=== PATIENT | male | born 1985 | race Caucasian/White ===

== ENCOUNTER 2017-01-20 23:32 | Emergency (ER) | payer OTHER ==
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
[2017-01-20 23:59] VITALS: TEMP 98.1; BMI 38.7
[2017-01-21] MEDS ORDERED: AMOX TR/POT CLAV 875MG/125MG TABLETS (FP) PO ONE (00:06)
[2017-01-21] MEDS ORDERED: TETANUS AND DIPHTHERIA TOXOID 0.5 ML DISP.SYRIN IM ONE (00:06)
[2017-01-21] MEDS ORDERED: AMOX TR/POT CLAV 875MG/125MG TABLETS (FP) ONE (00:29)
[2017-01-21] MEDS ORDERED: IBUPROFEN 400 MG TABLET (FP) PO ONE ×2 (01:47→01:52)
[2017-01-21 02:00] VITALS: BP 149/88; PULSE 96
== END 2017-01-21 02:02 | disposition home or self-care (01) ==
LOC: JER 23:32
PROC: 3E0234Z Introduction of Serum, Toxoid and Vaccine into Muscle, Percutaneous Approach (ICD-10-PCS; principal; 2017-01-20)
DX: S29.8XXA Other specified injuries of thorax, initial encounter (principal); S09.8XXA Other specified injuries of head, initial encounter; Y04.2XXA Assault by strike against or bumped into by another person, initial encounter; Y93.89 Activity, other specified; Y92.512 Supermarket, store or market as the place of occurrence of the external cause; Y99.0 Civilian activity done for income or pay
CPT/HCPCS: 70450-TC; 70486-TC; 71250-TC; 99283-25

== ENCOUNTER 2018-09-21 20:31 | Emergency (ER) | payer OTHER ==
[2018-09-21 20:37] VITALS: BP 172/67; PULSE 69; TEMP 98.2; BMI 37.5
--- NOTE | 2018-09-21 20:39 | PDOC ---
Rapid Medical Evaluation Time Seen by Provider: 09/21/18 20:34 Medical Evaluation: Allergies Allergy/AdvReac Type Severity Reaction Status Date / Time No Known Allergies Allergy Verified 04/25/18 10:59 09/21/18 20:35 I have performed a brief in-person evaluation of this patient. The patient presents with a chief complaint of: SMOOTH x4 days Pertinent physical exam findings: +4 tonsils. Lungs with end expiratory wheezes I have ordered the following: influenza, rapid strep The patient will proceed to the ED for further evaluation. Discharge Disposition - Diagnosis Influenza-like symptoms - Referrals - Patient Instructions - Post Discharge Activity
[2018-09-21] MEDS ORDERED: DEXAMETHASONE LIQUID 0.5 MG/5 ML 240 ML BULK BOTTLE PO ONE (22:01)
--- NOTE | 2018-09-21 22:04 | PDOC ---
History of Present Illness - General Chief Complaint: Sore Throat Stated Complaint: SORE THROAT Time Seen by Provider: 09/21/18 20:34 - History of Present Illness Initial Comments: 09/21/18 22:01 33-year-old male without comorbidities presents for evaluation of sore throat intermittent subjective fever and stuffy nose 5 days Past History - Past Medical History Allergies/Adverse Reactions: Allergies Allergy/AdvReac Type Severity Reaction Status Date / Time No Known Allergies Allergy Verified 09/21/18 20:37 Home Medications: Ambulatory Orders Penicillin V Potassium [Pen Vee K -] 500 mg PO QID #40 tablet 09/21/18 COPD: No - Family Disease History Family Disease History: Diabetes: Mother - Immunization History Immunization Up to Date: Yes - Suicide/Smoking/Psychosocial Hx Smoking History: Never smoked Hx Alcohol Use: No Substance Use Type: None Review of Systems - Review of Systems Constitutional: Yes: Fever HEENTM: Yes: Nose Congestion, Throat Pain *Physical Exam - Vital Signs Last Vital Signs Temp Pulse Resp BP Pulse Ox 98.2 F 69 18 172/67 H 100 09/21/18 20:34 09/21/18 20:34 09/21/18 20:34 09/21/18 20:34 09/21/18 20:34 - Physical Exam Comments: 09/21/18 22:02 HEAD: NC/AT EYES: Conjuntiva clear Ears: Canals and TM's normal NOSE: Clear rhinorrhea THROAT: Moist mucous membrances, oral pharanx injected with exudate, uvula midline NECK: Supple without adenopathy CARDIAC: S1 S2 LUNGS: CTA Full and Equal breath sounds ABDOMEN: Soft NT ND MS: Full ROM in all joints without edema NEUROLOGIC: No gross sensory or motor deficits, NVID SKIN: Normal color and temperature no lesions or rashes Moderate Sedation - Procedure Monitoring Vital Signs: Procedure Monitoring Vital Signs Temperature 98.2 F 09/21/18 20:34 Pulse Rate 69 09/21/18 20:34 Respiratory Rate 18 09/21/18 20:34 Blood Pressure 172/67 H 09/21/18 20:34 O2 Sat by Pulse Oximetry (%) 100 09/21/18 20:34 *DC/Admit/Observation/Transfer Diagnosis at time of Disposition: Strep pharyngitis Diagnosis at time of Disposition: (Ruled Out): Influenza-like symptoms - Discharge Dispostion Disposition: HOME Condition at time of disposition: Stable Decision to Admit order: No - Prescriptions Prescriptions: Penicillin V Potassium [Pen Vee K -] 500 mg PO QID #40 tablet - Referrals Referrals: Kellee Pelayo MD [Staff Physician] - Alice Austin MD [Staff Physician] - Dewayne Santos MD [Staff Physician] - Denisa Cotter MD [Staff Physician] - Rakan Chung MD [Staff Physician] - Christina Metcalf MD [Staff Physician] - - Patient Instructions Printed Discharge Instructions: Strep Throat, DI for Strep Throat Additional Instructions: If you need pain medication you may only take Tylenol at this point. You're given a long-acting steroid in the emergency room. Please take the antibiotics as directed and finish the entire course. Return to the emergency room should symptoms worsen or go unresolved otherwise follow-up with the primary care physician we've recommended for you within the next 1-2 days for further evaluation and treatment options. - Post Discharge Activity
[2018-09-21 22:07] LABS: THROAT:GRP A STREP ANTIGEN Positive
== END 2018-09-21 22:18 | disposition home or self-care (01) ==
LOC: JERFT 20:31
DX: J02.0 Streptococcal pharyngitis (principal); B95.0 Streptococcus, group A, as the cause of diseases classified elsewhere; J11.1 Influenza due to unidentified influenza virus with other respiratory manifestations
CPT/HCPCS: 87804; 87880; 99281-25

== ENCOUNTER 2022-06-05 02:50 | Inpatient (IN) | payer OTHER ==
[2022-06-05] MEDS ORDERED: ACETAMINOPHEN 1000 MG/100 ML BAG IVPB ONE (03:15)
[2022-06-05] MEDS ORDERED: FAMOTIDINE 20 MG/50 ML IVPB 20 MG/50 ML MG IVPB ONE ×2 (03:15→03:20)
[2022-06-05] MEDS ORDERED: MAG HYDROX/AL HYDROX/SIMETH -MYLANTA- ORAL SUSPENSION PO ONE (03:15)
[2022-06-05] MEDS ORDERED: ACETAMINOPHEN INJECTION 100 ML IVPB ONE (03:20)
[2022-06-05] MEDS ORDERED: MAG HYDROX/AL HYDROX/SIMETH 30 ML UNIT-DOSE CUP ONE (03:20)
[2022-06-05 03:22] LABS: BASO % 0.7 % (0-2.0); EOS % 1.7 % (0-4.5); HEMOGLOBIN 12.7 GM/dL (11.7-16.9); LYMPH % 29.1 % (8-40); MCH 27.5 pg (25.7-33.7); MCHC 34.3 g/dl (32.0-35.9); MEAN CELL VOLUME 80.2 fl (80-96); MEAN PLT VOLUME 7.9 fl (7.5-11.1); MONO % 5.4 % (3.8-10.2); NEUT % 63.1 % (42.8-82.8); PLATELET COUNT 137 10^3/uL (134-434); RBC 4.61 M/mm3 (4.00-5.60); WHITE BLOOD COUNT 8.5 K/mm3 (4.0-10.0)
[2022-06-05 03:43] LABS: CHLORIDE 106 mmol/L (98-107); SODIUM 142 mmol/L (136-145)
[2022-06-05 03:45] LABS: BLOOD UREA NITROGEN 15.1 mg/dL (7-18); CALCIUM 8.2 mg/dL (8.5-10.1)
[2022-06-05 03:46] LABS: ALBUMIN 3.8 g/dl (3.4-5.0); ANION GAP 7 MMOL/L (8-16); CO2 29 mmol/L (21-32); GLUCOSE,RANDOM 161 mg/dL (74-106); LIPASE 69 U/L (73-393)
[2022-06-05 03:48] LABS: CREATININE 1.2 mg/dL (0.55-1.3)
[2022-06-05 03:50] LABS: BILIRUBIN,TOTAL 0.9 mg/dL (0.2-1); SGOT/AST 110 U/L (15-37); TOT PROT 6.4 g/dl (6.4-8.2)
[2022-06-05 03:51] LABS: ALK PHOS 76 U/L (45-117)
[2022-06-05 04:11] LABS: SGPT/ALT 97 U/L (13-61)
[2022-06-05 07:41] LABS: MAGNESIUM 1.9 mg/dL (1.8-2.4)
[2022-06-05] MEDS: HEPARIN NA (PORCINE) 5,000 UNITS/ML 1ML VIAL SQ SCH ×2 (07:50→15:55)
[2022-06-05] MEDS ORDERED: HEPARIN NA (PORCINE) 5,000 UNITS/ML 1ML VIAL ONE ×2 (07:56→15:52)
[2022-06-06] MEDS ORDERED: HEPARIN NA (PORCINE) 5,000 UNITS/ML 1ML VIAL ONE (01:51)
[2022-06-06] MEDS: HEPARIN NA (PORCINE) 5,000 UNITS/ML 1ML VIAL SQ SCH ×2 (01:51→06:59)
[2022-06-06 03:46] VITALS: BMI 31.8
[2022-06-06 07:51] LABS: HEMATOCRIT 39.5 % (35.4-49); HEMOGLOBIN 13.4 GM/dL (11.7-16.9); MCH 27.1 pg (25.7-33.7); MEAN CELL VOLUME 79.6 fl (80-96); MEAN PLT VOLUME 8.6 fl (7.5-11.1); PLATELET COUNT 142 10^3/uL (134-434); RBC 4.96 M/mm3 (4.00-5.60); WHITE BLOOD COUNT 5.6 K/mm3 (4.0-10.0)
[2022-06-06 08:04] LABS: BLOOD UREA NITROGEN 11.6 mg/dL (7-18)
[2022-06-06 08:05] LABS: CALCIUM 8.9 mg/dL (8.5-10.1); INR 1.15 (0.83-1.09); PROTHROMBIN TIME (PATIENT) 13.2 SEC (9.7-13.0)
[2022-06-06 08:08] LABS: CREATININE 0.9 mg/dL (0.55-1.3)
[2022-06-06 14:29] VITALS: BP 145/77; PULSE 67; RESP 17; TEMP 98.1
[2022-06-06 14:29] LABS: BILIRUBIN,DIRECT 0.3 mg/dL (0.0-0.2)
[2022-06-06 14:31] LABS: BILIRUBIN,TOTAL 1.3 mg/dL (0.2-1); TOT PROT 6.7 g/dl (6.4-8.2)
== END 2022-06-06 15:29 | disposition home or self-care (01) | DRG 201 ==
LOC: JER 02:50 → JERBED 04:34 → J4S 06-06 02:21
PROVIDERS: ADMIT Internal Medicine; ATTEND Internal Medicine
DX: I48.91 Unspecified atrial fibrillation (principal); I48.92 Unspecified atrial flutter; R55 Syncope and collapse; R74.01 Elevation of levels of liver transaminase levels; I95.89 Other hypotension; R00.1 Bradycardia, unspecified; R10.12 Left upper quadrant pain; R03.0 Elevated blood-pressure reading, without diagnosis of hypertension; Z98.84 Bariatric surgery status
CPT/HCPCS: 36415; 71275-TC; 74174-TC; 76705-TC; 80048; 80053; 80076; 82962; 83605; 83690; 83735; 84439; 84443; 84479; 84484; 85025; 85027; 85610; 85730; 86850; 86900; 86901; 93005; 93010; 93306-TC; 99285-25; C9803-CS; J1644; U0003; U0005

== ENCOUNTER 2023-05-08 19:30 | Observation (INO) | payer OTHER ==
[2023-05-08] MEDS ORDERED: ONDANSETRON 4 MG/2 ML VIAL IVPUSH ONE ×2 (19:48→23:04)
[2023-05-08] MEDS ORDERED: SODIUM CHLORIDE 0.9% 500 ML INFUS.BAG IV ONE ×2 (19:48→19:51)
[2023-05-08] MEDS ORDERED: ACETAMINOPHEN 1000 MG/100 ML BAG IVPB ONE (19:48)
[2023-05-08 19:49] VITALS: BMI 34.0
[2023-05-08] MEDS ORDERED: ONDANSETRON 4 MG/2 ML VIAL ONE ×2 (20:07→23:27)
[2023-05-08 20:18] LABS: BASO % 0.6 % (0-2.0); HEMATOCRIT 44.2 % (35.4-49); HEMOGLOBIN 14.2 GM/dL (11.7-16.9); LYMPH % 11.3 % (8-40); MCH 26.3 pg (25.7-33.7); MCHC 32.3 g/dl (32.0-35.9); MEAN CELL VOLUME 81.6 fl (80-96); MEAN PLT VOLUME 8.9 fl (7.5-11.1); MONO % 9.6 % (3.8-10.2); NEUT % 77.5 % (42.8-82.8); PLATELET COUNT 183 10^3/uL (134-434); RBC 5.41 M/mm3 (4.00-5.60); RDW 13.1 % (11.9-15.9); WHITE BLOOD COUNT 14.3 K/mm3 (4.0-10.0)
[2023-05-08 20:55] LABS: INR 1.11 (0.83-1.09); PROTHROMBIN TIME (PATIENT) 12.9 SEC (9.7-13.0)
[2023-05-08 20:58] LABS: ACTIVATED PTT 27.3 SECONDS (25.2-36.5)
[2023-05-08] MEDS ORDERED: FOLIC ACID INJECTION - 1 MG, THIAMINE HCL 100 MG, MULTIVIT INJECTION ADULT 10 ML in SOD... IVPB ONE (21:04)
[2023-05-08 21:11] LABS: POTASSIUM 3.8 mmol/L (3.5-5.1)
[2023-05-08] MEDS ORDERED: ACETAMINOPHEN INJECTION 100 ML IVPB ONE (21:11)
[2023-05-08 21:13] LABS: CALCIUM 8.9 mg/dL (8.5-10.1)
[2023-05-08 21:14] LABS: ALBUMIN 4.7 g/dl (3.4-5.0); BLOOD UREA NITROGEN 15.7 mg/dL (7-18)
[2023-05-08 21:17] LABS: CREATININE 1.6 mg/dL (0.55-1.3)
[2023-05-08 21:19] LABS: BILIRUBIN,TOTAL 0.7 mg/dL (0.2-1); TOT PROT 8.1 g/dl (6.4-8.2)
[2023-05-08 23:44] LABS: EPI CELLS 4 /uL (0-25.1); HYALINE CASTS 2 /uL (0-3.1); PH,URINE 5.5 (5.0-8.0); URINE APPEARANCE CLEAR; URINE BACTERIA 11 /uL (0-1359); URINE BILIRUBIN NEGATIVE (NEGATIVE); URINE COLOR YELLOW; URINE GLUCOSE (UA) NEGATIVE (NEGATIVE); URINE KETONE NEGATIVE (NEGATIVE); URINE LEUK ESTERASE NEGATIVE (NEGATIVE); URINE NITRITE NEGATIVE (NEGATIVE); URINE PROTEIN 1+ (NEGATIVE); URINE RBC 12 /uL (0-23.9); URINE UROBILINOGEN 0.2 mg/dL (0.2-1.0); URINE WBC 7 /uL (0-25.8)
[2023-05-09] MEDS ORDERED: SODIUM CHLORIDE 1,000 ML IV SCH (01:30)
[2023-05-09 02:36] LABS: URINE AMPHETAMINES NEGATIVE (NEGATIVE); URINE BARBITURATES NEGATIVE (NEGATIVE)
[2023-05-09 02:37] LABS: PHENCYCLIDINE,URINE NEGATIVE (NEGATIVE)
[2023-05-09 03:32] LABS: COCAINE, UR NEGATIVE (NEGATIVE); METHADONE, UR NEGATIVE (NEGATIVE); OPIATES, URI NEGATIVE (NEGATIVE); URINE BENZODIAZEPINES NEGATIVE (NEGATIVE)
[2023-05-09 04:41] LABS: BASO % 0.4 % (0-2.0); EOS % 0.2 % (0-4.5); HEMATOCRIT 41.1 % (35.4-49); HEMOGLOBIN 13.3 GM/dL (11.7-16.9); LYMPH % 6.7 % (8-40); MCH 26.2 pg (25.7-33.7); MCHC 32.3 g/dl (32.0-35.9); MEAN CELL VOLUME 81.3 fl (80-96); MEAN PLT VOLUME 9.3 fl (7.5-11.1); NEUT % 88.7 % (42.8-82.8); PLATELET COUNT 159 10^3/uL (134-434); RBC 5.05 M/mm3 (4.00-5.60); WHITE BLOOD COUNT 9.5 K/mm3 (4.0-10.0)
[2023-05-09] MEDS ORDERED: HEPARIN NA (PORCINE) 5,000 UNITS/ML 1ML VIAL SQ SCH (06:00)
[2023-05-09] MEDS ORDERED: HEPARIN NA (PORCINE) 5,000 UNITS/ML 1ML VIAL ONE (06:30)
[2023-05-09 07:13] LABS: POTASSIUM 4.2 mmol/L (3.5-5.1)
[2023-05-09 07:18] LABS: CALCIUM 8.6 mg/dL (8.5-10.1)
[2023-05-09 07:19] LABS: BLOOD UREA NITROGEN 12.2 mg/dL (7-18); MAGNESIUM 1.9 mg/dL (1.8-2.4)
[2023-05-09 07:20] LABS: CHOLESTEROL 105 mg/dL (50-200)
[2023-05-09 07:22] LABS: CREATININE 1.1 mg/dL (0.55-1.3); LDL CHOLESTEROL (ONLY SJRH) 68 mg/dL (5-100); PHOSPHOROUS 4.5 mg/dL (2.5-4.9)
[2023-05-09 07:23] LABS: BILIRUBIN,TOTAL 1.6 mg/dL (0.2-1); TOT PROT 6.7 g/dl (6.4-8.2)
[2023-05-09 07:24] LABS: HDL CHOLESTEROL 32 mg/dL (40-60)
[2023-05-09 07:29] LABS: BASO % 0.3 % (0-2.0); EOS % 0.2 % (0-4.5); HEMATOCRIT 40.9 % (35.4-49); HEMOGLOBIN 13.5 GM/dL (11.7-16.9); LYMPH % 11.6 % (8-40); MCHC 33.1 g/dl (32.0-35.9); MEAN CELL VOLUME 81.5 fl (80-96); MEAN PLT VOLUME 9.3 fl (7.5-11.1); MONO % 5.7 % (3.8-10.2); NEUT % 82.2 % (42.8-82.8); PLATELET COUNT 143 10^3/uL (134-434); RBC 5.03 M/mm3 (4.00-5.60); WHITE BLOOD COUNT 7.6 K/mm3 (4.0-10.0)
[2023-05-09 08:02] LABS: ALBUMIN 3.7 g/dl (3.4-5.0)
[2023-05-09 09:25] VITALS: BP 106/73; PULSE 84; RESP 18; TEMP 98.2
== END 2023-05-09 10:43 | disposition home or self-care (01) ==
LOC: JER 19:30 → JERBED 22:18
PROVIDERS: ADMIT Internal Medicine; ATTEND Internal Medicine
PROC: 3E033NZ Introduction of Analgesics, Hypnotics, Sedatives into Peripheral Vein, Percutaneous Approach (ICD-10-PCS; principal; 2023-05-08)
PROC: 3E023GC Introduction of Other Therapeutic Substance into Muscle, Percutaneous Approach (ICD-10-PCS; 2023-05-08)
PROC: 3E033GC Introduction of Other Therapeutic Substance into Peripheral Vein, Percutaneous Approach (ICD-10-PCS; 2023-05-08)
PROC: 3E0337Z Introduction of Electrolytic and Water Balance Substance into Peripheral Vein, Percutaneous Approach (ICD-10-PCS; 2023-05-08)
DX: R55 Syncope and collapse (principal); I48.91 Unspecified atrial fibrillation; E66.8 Other obesity; Z68.34 Body mass index [BMI] 34.0-34.9, adult
CPT/HCPCS: 0241U-QW; 36415; 71045-TC-FY; 74177-TC; 76775-TC; 80053; 80061; 80307; 81003; 82550; 82553; 82962; 83036; 83605; 83735; 84100; 84443; 84484; 85025; 85610; 85730; 93005; 93010; 99285-25; G0378; J1644; Q9967

== ENCOUNTER 2024-05-24 02:08 | Emergency (ER) | payer BC, OTHER ==
[2024-05-24] MEDS ORDERED: FAMOTIDINE 20 MG/50 ML IVPB 20 MG/50 ML MG IVPB ONE (02:38)
[2024-05-24] MEDS ORDERED: ACETAMINOPHEN INJECTION 100 ML IVPB ONE (02:38)
[2024-05-24] MEDS ORDERED: ONDANSETRON 4 MG/2 ML VIAL ONE (02:38)
[2024-05-24 02:42] LABS: BASO % 0.4 % (0-2.0); EOS % 0.4 % (0-4.5); HEMATOCRIT 41.4 % (35.4-49); HEMOGLOBIN 14.1 GM/dL (11.7-16.9); LYMPH % 9.8 % (8-40); MCH 27.1 pg (25.7-33.7); MCHC 33.9 g/dl (32.0-35.9); MEAN CELL VOLUME 79.9 fl (80-96); MEAN PLT VOLUME 8.1 fl (7.5-11.1); MONO % 6.9 % (3.8-10.2); NEUT % 82.5 % (42.8-82.8); PLATELET COUNT 155 10^3/uL (134-434); RBC 5.18 M/mm3 (4.00-5.60); RDW 12.8 % (11.9-15.9); WHITE BLOOD COUNT 7.8 K/mm3 (4.0-10.0)
[2024-05-24] MEDS: ACETAMINOPHEN 1000 MG/100 ML BAG IVPB ONE (02:47)
[2024-05-24] MEDS: ONDANSETRON 4 MG/2 ML VIAL IVPUSH ONE (02:47)
[2024-05-24] MEDS: FAMOTIDINE 20 MG/50 ML IVPB 20 MG/50 ML MG IVPB ONE (02:47)
[2024-05-24 02:49] LABS: INR 1.09 (0.83-1.09); PROTHROMBIN TIME (PATIENT) 12.3 SEC (9.7-13.0)
[2024-05-24 02:58] VITALS: BMI 34.0
[2024-05-24 03:02] LABS: CHLORIDE 109 mmol/L (98-107); POTASSIUM 3.8 mmol/L (3.5-5.1); SODIUM 140 mmol/L (136-145)
[2024-05-24 03:04] LABS: ANION GAP 7 mmol/L (4-13); BLOOD UREA NITROGEN 18.2 mg/dL (7-18); CALCIUM 8.6 mg/dL (8.5-10.1); CO2 24 mmol/L (21-32); GLUCOSE,RANDOM 177 mg/dL (74-106); MAGNESIUM 1.9 mg/dL (1.8-2.4)
[2024-05-24 03:05] LABS: ALBUMIN 4.2 g/dl (3.4-5.0)
[2024-05-24 03:07] LABS: SGPT/ALT 57 U/L (13-61)
[2024-05-24 03:08] LABS: CREATININE 1.4 mg/dL (0.55-1.3); SGOT/AST 24 U/L (15-37)
[2024-05-24 03:09] LABS: BILIRUBIN,TOTAL 0.7 mg/dL (0.2-1)
[2024-05-24 03:10] LABS: ALK PHOS 80 U/L (45-117); TOT PROT 7.2 g/dl (6.4-8.2)
[2024-05-24 03:29] LABS: LACTIC ACID 2.4 mmol/L (0.4-2.0)
[2024-05-24] MEDS: SODIUM CHLORIDE 0.9% 500 ML INFUS.BAG IV ONE (03:51)
[2024-05-24 07:58] LABS: OPIATES, URI NEGATIVE (NEGATIVE)
[2024-05-24 07:59] LABS: COCAINE, UR NEGATIVE (NEGATIVE); METHADONE, UR NEGATIVE (NEGATIVE); PHENCYCLIDINE,URINE NEGATIVE (NEGATIVE); URINE AMPHETAMINES NEGATIVE (NEGATIVE); URINE BENZODIAZEPINES NEGATIVE (NEGATIVE)
[2024-05-24 08:00] LABS: URINE BARBITURATES NEGATIVE (NEGATIVE)
[2024-05-24 08:17] LABS: URINE APPEARANCE CLEAR; URINE COLOR YELLOW
[2024-05-24 08:18] LABS: PH,URINE 5.5 (5.0-8.0); URINE BILIRUBIN NEGATIVE (NEGATIVE); URINE GLUCOSE (UA) NEGATIVE (NEGATIVE); URINE KETONE NEGATIVE (NEGATIVE); URINE LEUK ESTERASE NEGATIVE (NEGATIVE); URINE NITRITE NEGATIVE (NEGATIVE); URINE PROTEIN NEGATIVE (NEGATIVE); URINE UROBILINOGEN 0.2 mg/dL (0.2-1.0)
[2024-05-24 09:06] VITALS: BP 119/74; PULSE 68; RESP 16; TEMP 98
== END 2024-05-24 09:07 | disposition home or self-care (01) ==
LOC: JER 02:08
PROC: 3E033GC Introduction of Other Therapeutic Substance into Peripheral Vein, Percutaneous Approach (ICD-10-PCS; principal; 2024-05-24)
PROC: 3E033NZ Introduction of Analgesics, Hypnotics, Sedatives into Peripheral Vein, Percutaneous Approach (ICD-10-PCS; 2024-05-24)
PROC: 3E033GC Introduction of Other Therapeutic Substance into Peripheral Vein, Percutaneous Approach (ICD-10-PCS; 2024-05-24)
DX: R10.13 Epigastric pain (principal); R55 Syncope and collapse; R11.2 Nausea with vomiting, unspecified; Z20.822 Contact with and (suspected) exposure to COVID-19
CPT/HCPCS: 0241U-QW; 36415; 70450-TC; 71045-TC-FY; 74177-TC; 80053; 80307; 81003; 83605; 83690; 83735; 84484; 85025; 85610; 93005; 93010; 99285-25; J0131